=== PATIENT | male | born 1965 | race Caucasian/White ===

== ENCOUNTER 2019-11-06 04:04 | Emergency (ER) | payer MEDICAID ==
[~2019-11-06] VITALS: Ht 182.9 cm; Wt 136.1 kg
[~2019-11-06 04:04] MED LIST: ALLO100T91 PO; HYDR25TA4 PO; METO100T PO
[2019-11-06 04:10] VITALS: BP_SYST 106; BP_SYST 184
[2019-11-06] MEDS ORDERED: MECLIZINE HCL 25 MG TABLET (ANITVERT) PO ONE (04:30)
[2019-11-06 05:18] LABS: BASOPHILS % (AUTO) 0.7 % (0.0-2.0); EOSINOPHILS # (AUTO) 0.3 K/uL (0.0-0.4); EOSINOPHILS % (AUTO) 4.5 % (0.0-4.0); HEMATOCRIT 43.4 % (36-54); HEMOGLOBIN 14.5 g/dL (14.0-18.0); LYMPHOCYTES # (AUTO) 1.7 K/uL (1.0-5.5); LYMPHOCYTES % (AUTO) 26.3 % (20.5-51.5); MEAN CORPUSCULAR HEMOGLOBIN 29 pg (27-31); MEAN CORPUSCULAR HGB CONC 34 % (32-36); MEAN CORPUSCULAR VOLUME 87 fL (79.0-98.0); MONOCYTES # (AUTO) 0.5 K/uL (0.0-1.0); MONOCYTES % (AUTO) 7.1 % (1.7-9.3); NEUTROPHILS % (AUTO) 61.4 % (40.0-70.0); PLATELET COUNT (AUTO) 170 K/uL (130-430); RED CELL DISTRIBUTION WIDTH 13.5 % (9.0-15.0); WHITE BLOOD COUNT (AUTO) 6.5 K/uL (4.8-10.8)
[2019-11-06 05:21] LABS: CALCIUM 8.6 mg/dL (8.4-11.0); CREATININE 1.27 mg/dL (0.55-1.30); POTASSIUM 3.7 mmol/L (3.5-5.1)
[2019-11-06 05:27] LABS: ALBUMIN 3.4 g/dL (3.4-4.8); TOTAL BILIRUBIN 0.4 mg/dL (0.0-1.0)
[2019-11-06 05:58] LABS: BILIRUBIN,URINE NEGATIVE (NEGATIVE); BLOOD, URINE NEGATIVE (NEGATIVE); CLARITY/URINE CLEAR (CLEAR); COLOR,URINE YELLOW (YELLOW); GLUCOSE,URINE 1+ (NEGATIVE); KETONES,URINE NEGATIVE (NEGATIVE); LEUKOCYTE ESTERASE ,URINE NEGATIVE (NEGATIVE); NITRITE, URINE NEGATIVE (NEGATIVE); PH,URINE 6.5 (5.0-8.0); PROTEIN URINE NEGATIVE (NEGATIVE)
[2019-11-06 06:20] VITALS: BP_SYST 147
== END 2019-11-06 06:20 | disposition home or self-care (01) ==
LOC: SED 04:04
DX: R42 Dizziness and giddiness (principal); I10 Essential (primary) hypertension; E11.9 Type 2 diabetes mellitus without complications; Z79.899 Other long term (current) drug therapy
CPT/HCPCS: 36415; 80053; 81003; 85025; 93005; 99284; J8597